=== PATIENT | male | born 1950 | race African-American/Black ===

== ENCOUNTER 2019-07-11 10:03 | Emergency (ER) | payer OTHER, BC ==
[~2019-07-11] VITALS: Ht 188 cm; Wt 85.7 kg
[2019-07-11 10:09] VITALS: BP 133/70
--- NOTE | 2019-07-11 10:23 | NUR ---
PT TO ED S/P FALL X 1 DAY. DENIES LOC. SMALL ABRASION NOTED TO UPPER LIP. NO ACTIVE BLEEDING. PT RECALLS EVENT WITHOUT DIFFICULTY. IN BED FOR MD GRACIA.
[2019-07-11] MEDS ORDERED: IBUPROFEN 600 MG TAB PO ONE (11:15)
[2019-07-11] MEDS ORDERED: LIDOCAINE MPF 1% 10 MG/ML VIAL INJ ONE (11:15)
[2019-07-11] MEDS ORDERED: BACITRACIN OINT 500 UNITS/GM PKT TP ONE (12:00)
--- NOTE | 2019-07-11 12:09 | NUR ---
Patient discharged with v/s stable. Written and verbal after care instructions given and explained. Patient alert, oriented and verbalized understanding of instructions. Ambulatory with steady gait. All questions addressed prior to discharge. ID band removed. Patient advised to follow up with PMD. Rx of BACITRACIN, MOTRIN, KEFLEX given. Patient educated on indication of medication including possible reaction and side effects. Opportunity to ask questions provided and answered.
[2019-07-11 12:10] VITALS: BP 127/68
== END 2019-07-11 12:09 | disposition home or self-care (01) ==
LOC: MED 10:03
DX: S01.511A Laceration without foreign body of lip, initial encounter (principal); S09.93XA Unspecified injury of face, initial encounter; W01.0XXA Fall on same level from slipping, tripping and stumbling without subsequent striking against object, initial encounter; Y92.009 Unspecified place in unspecified non-institutional (private) residence as the place of occurrence of the external cause; Y93.89 Activity, other specified; Y99.8 Other external cause status
CPT/HCPCS: 12011; 90471; 90715; 99283; J2001

== ENCOUNTER 2019-07-13 09:31 | Emergency (ER) | payer OTHER, BC ==
[~2019-07-13] VITALS: Ht 185.4 cm; Wt 88.5 kg
[2019-07-13 09:41] VITALS: BP 123/59
[2019-07-13 10:16] VITALS: BP 123/59
== END 2019-07-13 10:17 | disposition home or self-care (01) ==
LOC: MED 09:31
DX: S01.511D Laceration without foreign body of lip, subsequent encounter (principal); X58.XXXD Exposure to other specified factors, subsequent encounter
CPT/HCPCS: 99281

== ENCOUNTER 2019-07-15 10:18 | Emergency (ER) | payer OTHER, BC ==
[~2019-07-15] VITALS: Ht 182.9 cm; Wt 87.1 kg
[2019-07-15 10:22] VITALS: BP 111/52
--- NOTE | 2019-07-15 10:25 | NUR ---
PT TO BED 11 WITH STEADY GAIT
--- NOTE | 2019-07-15 11:15 | NUR ---
ER AT BEDSIDE REMOVING SUTURES
[2019-07-15 11:20] VITALS: BP 111/52
--- NOTE | 2019-07-15 11:20 | NUR ---
Patient discharged with v/s stable. Written and verbal after care instructions given and explained. Patient verbalized understanding. Ambulatory with steady gait. All questions addressed prior to discharge. Advised to follow up with PMD.
== END 2019-07-15 11:20 | disposition home or self-care (01) ==
LOC: MED 10:18
DX: S01.511D Laceration without foreign body of lip, subsequent encounter (principal); Z48.02 Encounter for removal of sutures; X58.XXXD Exposure to other specified factors, subsequent encounter
CPT/HCPCS: 99281